=== PATIENT | female | born 1935 | race Caucasian/White ===

== ENCOUNTER 2021-01-31 17:23 | Emergency (ER) | payer MEDICARE, OTHER ==
[~2021-01-31] VITALS: Ht 152.4 cm; Wt 52.0 kg
[~2021-01-31 17:23] MED LIST: ALBU18HF INH; ASPI-1026 PO; ASPI81TA45 PO; ATOR40TA78 PO; CARV3.122 PO; CHOL200021 PO; LEVO50TA PO; LEVO75TA PO; LISI5TAB7 PO; METO25TA35 PO; NITR0.4T28 SL; TICA90TA PO; VIT1TABL34 PO
--- NOTE | 2021-01-31 18:00 | NUR ---
metal solderer completed. electronic systems technician just completed draw. Pt with severe pain in lower R buttock/hip/thigh area after "doing more than usual" yesterday with pain increasing overnight.
[2021-01-31 18:09] LABS: BASOPHILS % (AUTO) 1 % (0-1); EOSINOPHILS % (AUTO) 1 % (1-7); LYMPHOCYTES % (AUTO) 14 % (22-44); MEAN CORPUSCULAR HEMOGLOBIN 29.6 pg (27.0-34.8); MEAN CORPUSCULAR HGB CONC 32.8 g/dL (32.4-35.8); MEAN PLATELET VOLUME 8.5 fL (7.4-10.4); MONOCYTES % (AUTO) 6 % (2-9); NEUTROPHILS % (AUTO) 78 % (42-75); PLATELET COUNT 289 x10^3/uL (130-400); RED BLOOD COUNT 4.88 x10^6/uL (3.82-5.3); RED CELL DISTRIBUTION WIDTH 14.1 % (9.6-15.2)
[2021-01-31] MEDS ORDERED: ROSU10TA2 PO (18:12)
[2021-01-31] MEDS ORDERED: LOSA25TA25 PO (18:12)
[2021-01-31 18:19] LABS: ALANINE AMINOTRANSFERASE 25 U/L (12-78); ALBUMIN 4.1 g/dL (3.4-5.0); ANION GAP 7 mmol/L (5-15); CALCIUM 9.7 mg/dL (8.5-10.1); CHLORIDE 102 mmol/L (98-107); CREATININE 0.96 mg/dL (0.55-1.02)
[2021-01-31 18:23] LABS: ALKALINE PHOSPHATASE 75 U/L (45-117); BILIRUBIN,TOTAL 0.4 mg/dL (0.2-1.0); TOTAL PROTEIN 7.2 g/dL (6.4-8.2); TROPONIN I < 0.015 ng/mL (0.000-0.045)
[2021-01-31] MEDS ORDERED: HYDROcodone/APAP 5/325 TABLET PO ONE (19:00)
--- NOTE | 2021-01-31 19:10 | NUR ---
Pt assisted to restroom, UA sample obtained just in case, and then assisted pt back to bed. Pt is stable on feet with ambulation while using her wheeled walker. Uop of 100mL clear, light yellow uop noted.
[2021-01-31] MEDS ORDERED: HYDROcodone/APAP 5/325 TABLET ONE (19:11)
--- NOTE | 2021-01-31 19:15 | NUR ---
Pt medicated with [place] 1 tab of 5/325mg as per orders. Unable to scan medication secondary to computer in room not working and wheeled computer in this area also not working- will not connect to intranet.
--- NOTE | 2021-01-31 19:55 | NUR ---
While getting pt dressed to go home, her daughter asked if the MD could change the pharmacy he sends the [place] prescription to. MD's cardiovascular physician assistant notified and handed paperwork and states he will let Dr. Bautista know when he come back to the MD area. Pt and daughter notified of delayed release until that is resolved for them.
[2021-01-31 20:01] VITALS: BP 176/87
--- NOTE | 2021-01-31 20:23 | NUR ---
Pt no longer in room. states he brought paperwork in to her himself and had them sign the narcotic presription form.
== END 2021-01-31 20:24 | disposition home or self-care (01) ==
LOC: ED 18:08
DX: I10 Essential (primary) hypertension (principal); M54.16 Radiculopathy, lumbar region; E03.9 Hypothyroidism, unspecified; I25.2 Old myocardial infarction
CPT/HCPCS: 36415; 71045; 80053; 84484; 85025; 93005; 99285